=== PATIENT | male | born 1950 | race Caucasian/White ===

== ENCOUNTER 2018-09-02 11:34 | Emergency (ER) | payer MEDICARE, MEDICAID ==
[~2018-09-02] VITALS: Ht 190.5 cm; Wt 82.0 kg
[2018-09-02 11:41] VITALS: RESP 18; Ht 190.5 cm; Wt 82.0 kg
[2018-09-02] MEDS ORDERED: FLUORESCEIN STRIP RIGHT EYE ONE (12:30)
[2018-09-02] MEDS ORDERED: HYDROCODONE/APAP (5/325) TAB PO ONE (12:30)
[2018-09-02] MEDS ORDERED: ACYCLOVIR 800 MG TAB PO ONE (12:30)
[2018-09-02] MEDS ORDERED: ACYC800T5 PO (12:58)
[2018-09-02] MEDS ORDERED: PRED20TA PO (12:58)
[2018-09-02] MEDS ORDERED: TRAM50TA2 PO (12:58)
--- NOTE | 2018-09-02 13:01 | ERD ---
ER Documentation Chief Complaint Chief Complaint RIGHT SIDED EYE PAIN WITH SWELLING/REDNESS/DISCHARGE X 3 DAYS HPI 67-year-old male presents with a rash on the right face for last 2 days. Started with a right-sided headache and ear pain. Patient denies any fevers, shortness of breath, pain in the eye itself or visual changes. Patient admits to not having any medical visit in several years. ROS All systems reviewed and are negative except as per history of present illness. Medications Home Meds Active Scripts Prednisone* (Prednisone*) 20 Mg Tab, 40 MG PO DAILY for 4 Days, TAB Prov:GIDEON VITALE MD 09/02/18 Tramadol HCl (Tramadol HCl) 50 Mg Tablet, 50 MG PO Q4 PRN for PAIN, #20 TAB Prov:GIDEON VITALE MD 09/02/18 Acyclovir* (Zovirax*) 800 Mg Tablet, 800 MG PO 5 TIMES DAILY for 10 Days, TAB Prov:GIDEON VITALE MD 09/02/18 Allergies Allergies: Coded Allergies: No Known Allergy (Unverified , 09/02/18) PMhx/Soc Medical and Surgical Hx: pt denies Medical Hx, pt denies Surgical Hx FmHx Family History: No diabetes, No coronary disease, No other Physical Exam Vitals Vital Signs Date Temp Pulse Resp B/P (MAP) Pulse Ox O2 O2 Flow FiO2 Time Delivery Rate 09/02/18 72 158/88 13:12 (111) 09/02/18 99.0 88 18 177/86 97 11:41 (116) Physical Exam Const: No acute distress Head: Atraumatic Eyes: Normal Conjunctiva. Eyes Mariano and extraocular movements intact. Sclera normal. No dendritic lesions on fluorescein test. Visual acuity shows no significant acute abnormalities ENT: Normal External Ears, Nose and Mouth. Vesicular erythematous rash in the right periorbital distribution with a lesion on the tip of the nose. Neck: Full range of motion. No meningismus. Resp: Clear to auscultation bilaterally Cardio: Regular rate and rhythm, no murmurs Abd: Soft, non tender, non distended. Normal bowel sounds Skin: No petechiae or rashes Back: No midline or flank tenderness Ext: No cyanosis, or edema Neur: Awake and alert Psych: Normal Mood and Affect Results 24 hrs Current Medications Medications Dose Sig/Nena Start Time Status Last (Trade) Ordered Route PRN Stop Time Admin Dose Reason Admin 1 tab ONCE ONCE 09/02/18 DC 09/02/18 Acetaminophen PO 12:30 12:44 / 09/02/18 12:31 Hydrocodone Bitart ([place] (5/325)) Acyclovir 800 mg ONCE ONCE 09/02/18 DC 09/02/18 (Zovirax) PO 12:30 12:44 09/02/18 12:31 Fluorescein 1 strip ONCE ONCE 09/02/18 DC Sodium RIGHT EYE 12:30 ([id number] 09/02/18 12:31 p) Procedures/MDM Patient presents with right facial herpes and orbital distribution. There is no current involvement of the eye or evidence of paralysis to suggest [place] syndrome or exquisite herpes ophthalmicus. Patient was given first dose of acyclovir [place] here. Will treat with acyclovir, tramadol, short course of prednisone and recommendations for primary care follow-up and return precautions for pain in the eye, visual changes, fevers, shortness of breath, weakness or deficits, new worsening symptoms. There is no signs of meningitis or encepha litis as well. The patient was stable with no new complaints during the ER course. Clinically, there is no current evidence to suggest meningitis, sepsis, acute abdomen, pneumonia, stroke, acute coronary syndrome, pulmonary embolism, aortic dissection or any other emergent condition appearing to require further evaluation or hospitalization. Patient counseled regarding my diagnostic impression and care plan. Prior to discharge all questions answered. Pt agrees with treatment plan and understands strict return precautions. Pt is instructed to follow up with primary care provider within 24-48 hours. Precautionary instructions provided including instructions to return to the ER if not improving or for any worsening or changing symptoms or concerns. The patient's blood pressure was elevated (>120/80) but appears stable without evidence of hypertension emergency or urgency. The patient was counseled about the risks of hypertension and urged to pursue outpatient monitoring and therapy within a week with their primary care physician. I discussed the findings with the patient. I advised the patient to follow-up with the primary physician in about 1-2 days, sooner if needed and return if any concern. Departure Diagnosis: Primary Impression: Shingles Herpes zoster complications: without complications Qualified Codes: B02.9 - Zoster without complications Condition: Stable Patient Instructions: Shingles (Herpes Zoster), Hypertension, To Be Confirmed Additional Instructions: See primary doctor for follow-up. Recheck for new or worsening symptoms such as changes in vision, fevers, weakness or deficits. GIDEON VITALE MD Sep 02, 2018 13:01
[2018-09-02 13:12] VITALS: BP 158/88; PULSE 72
== END 2018-09-02 13:15 | disposition home or self-care (01) ==
LOC: FTE 11:34
DX: B02.9 Zoster without complications (principal)
CPT/HCPCS: 99283